=== PATIENT | male | born 1945 | race Caucasian/White ===

== ENCOUNTER 2019-12-18 11:40 | Emergency (ER) | payer OTHER ==
--- NOTE | 2019-12-18 11:44 | PDOC ---
History of Present Illness - General Chief Complaint: Injury Stated Complaint: FELL DOWN STAIRS Time Seen by Provider: 12/18/19 11:41 - History of Present Illness Initial Comments: 12/18/19 12:32 74yo male with hx of CABG on baby asa presents for eval of a fall down the stairs yesterday while running to catch the train. Pt denies head injury or loc. Pt denies neck or midline back pain. Pt presents with complaints of L rib pain, R shoulder pain, b/l knee pain (r>l), R tibial pain, R big toe pain. Pt with ecchymosis to b/l knees, effusion to R knee, hematoma w abrasion to the R anterior tibia and bruising to the R big toe. Pt denies cp/sob. States he has been walkign around since yesterday. Pt states he has been holding his asa because he is having implant work on his teeth on Friday. Pt denies ramos. No neck pain. No paresthesias. No weakness. Tetanus is not utd. Pt denies all dysuria or hematuria. No other complaints. Pt took aleve this am for pain. Pmhx: cad pshx: knee replacment L, cabg all: nkda Past History - Past Medical History Allergies/Adverse Reactions: Allergies Allergy/AdvReac Type Severity Reaction Status Date / Time No Known Allergies Allergy Verified 12/18/19 11:41 Home Medications: Ambulatory Orders Aspirin [ASA -] 81 mg PO DAILY 12/18/19 Atorvastatin Ca [Lipitor] 40 mg PO HS 12/18/19 Ferrous Sulfate 1 tab PO DAILY 12/18/19 Multivitamin [One-Daily Multi-Vitamin] 1 each PO DAILY 12/18/19 Naproxen Sodium [Aleve] 440 mg PO PRN PRN 12/18/19 [place]-3 Fatty Acids/Fish Oil [Fish Oil 1,000 mg Capsule] 1 each PO DAILY Review of Systems - Review of Systems Able to Perform ROS?: Yes Is the patient limited Mongolian proficient: No Constitutional: No: Chills, Fever HEENTM: No: Eye Pain, Blurred Vision, Double Vision, Nose Congestion, Throat Pain Respiratory: No: Cough, Shortness of Breath Cardiac (ROS): Yes: Other (l posterior lateral rib ttp over rib 9 and 10). No: Chest Pain, Irregular Heart Rate, Lightheadedness, Palpitations, Syncope, Chest Tightness ABD/GI: No: Diarrhea, Nausea, Vomiting, Abdominal cramping : No: Burning, Dysuria, Hematuria Musculoskeletal: Yes: Back Pain, Joint Pain, Joint Swelling, Other (toe pain, knee pain, abrasions to knees and anterior gunn) Integumentary: Yes: Bruising, Erythema, Other (skin avulsion with hematoma to anterior tibia on R, b/l knees with abrasion) Neurological: No: Headache, Numbness, Paresthesia, Weakness, Ataxia All Other Systems: Reviewed and Negative *Physical Exam - Vital Signs 12/18/19 12:37 Selected Entries 12/18/19 11:41 Temperature 97.2 F L Pulse Rate 74 Respiratory 20 Rate Blood Pressure 112/85 Blood Pressure 94 Mean O2 Sat by Pulse 99 Oximetry (%) Weight 81.647 kg - Physical Exam General Appearance: Yes: Nourished, Appropriately Dressed. No: Apparent Distress HEENT: positive: EOMI, PAT, Normal Voice, Pharynx Normal Neck: positive: Supple. negative: Tender, Tender midline Respiratory/Chest: positive: Chest Tender (L posterior ribs 9 and 10 ttp, no deformity or crepitus), Lungs Clear, Normal Breath Sounds. negative: Respiratory Distress, Crackles, Rales, Rhonchi, Stridor, Wheezing Cardiovascular: positive: Regular Rhythm, Regular Rate, S1, S2 Gastrointestinal/Abdominal: positive: Soft. negative: Guarding, Rebound, Tenderness Musculoskeletal: positive: Other (L posterior rib ttp). negative: Vertebral Tenderness Extremity: positive: Normal Capillary Refill, Other (L elbow mild ecchymosis, no ttp and from, R shoulder lateral ttp with FROM, b/l knee abrasions, R anterior tibia abrasion with skin tear/avulsion and underlying hematoma, R knee with effusion-no warmth but limited FROM secondary to the effusion, pulses intact, sensation intact b/l LE, incision to L knee well healed, R big toe with eccymosis to the medial aspect of the toe without ttp, brisk cap refill, neurovasc intact distal) Integumentary: positive: Swelling (R knee and hematoma to R anterior gunn), Ecchymosis (L elbow and R anterior tibia), Other (abrasion to b/l knees) Neurologic: positive: night clerk auditor II-XII NML intact, Fully Oriented, Alert, Normal Mood/ Affect, Normal Response, Motor Strength 03/21 Medical Decision Making - Medical Decision Making 12/18/19 12:41 a/p: 74yo male with mechanical fall down the stairs with MSK pain -will send for xrays -denies head injury or loc -no anticoags and pt has been holding asa -neuro intact -will update tetanus -tylenol for pain -local wound care -xrays 12/18/19 12:45 ua neg for blood 12/18/19 13:50 xrays without acute fx except for L midaxillary rib fx 10th rib incentive spirometer given and instructions given pt states pain controlled discussed pain control at home local wound care provided to anterior tib and wrapped with an josé miguel wrap pt stable for dc to home to follow up with his PMD Dr. Jackman and Dr. Randolph Discharge - Discharge Information Problems reviewed: Yes Clinical Impression/Diagnosis: Rib fracture, Knee effusion, right, Leg abrasion, Knee pain Condition: Stable Disposition: HOME - Admission No - Follow up/Referral Referrals: Ivan Jackman [Non Staff, Medical] - Dr. Agustín [Other] - Patient Discharge Instructions Patient Printed Discharge Instructions: How to Prevent Falls, DI for Contusion , DI for Rib Fracture, DI for Knee Pain, DI for Knee Effusion, DI for Avulsion Laceration (Not Requiring Sutures), DI for Hematoma (Bruise) Additional Instructions: Please apply ice to the knee 20 min on and 20 min off. Please make a follow up appointment with your PMD and your orthopedist for this week. You may need further imaging of the knee to evaluate the ligaments and cartilage. Please take tylenol as needed for pain. Please buy over the counter lidoderm 4% patches. Please use the incentive spirometer 10x every hour you are awake. Please return to the ER with any further concerns or complaints. - Post Discharge Activity
[2019-12-18 11:57] VITALS: BP 112/85; PULSE 74; TEMP 97.2; BMI 25.1
[2019-12-18] MEDS ORDERED: ACETAMINOPHEN 500 MG TABLET (FP) PO ONE (12:00)
[2019-12-18] MEDS ORDERED: DIPHTH,PERTUSS(ACELL),TET 0.5 ML DISP.SYRIN IM ONE ×2 (12:01→12:47)
[2019-12-18] MEDS ORDERED: ACETAMINOPHEN 500 MG TABLET (FP) ONE (12:17)
[2019-12-18] MEDS ORDERED: LIDOCAINE 5% TOPICAL PATCH TP ONE (13:40)
[2019-12-18] MEDS ORDERED: LIDOCAINE 5% TOPICAL PATCH ONE (13:43)
[2019-12-18] MEDS ORDERED: LIDOCAINE PATCH REMOVAL MC SCH (22:00)
== END 2019-12-18 14:11 | disposition home or self-care (01) ==
LOC: FER 11:40
PROC: 3E0234Z Introduction of Serum, Toxoid and Vaccine into Muscle, Percutaneous Approach (ICD-10-PCS; principal; 2019-12-18)
DX: S22.39XA Fracture of one rib, unspecified side, initial encounter for closed fracture (principal); W10.9XXA Fall (on) (from) unspecified stairs and steps, initial encounter; Y93.89 Activity, other specified; Y92.522 Railway station as the place of occurrence of the external cause; S80.811A Abrasion, right lower leg, initial encounter; M25.561 Pain in right knee; M25.562 Pain in left knee
CPT/HCPCS: 71101-TC-LT-FY; 72070-TC-FY; 73030-TC-RT-FY; 73562-TC-RT-FY; 73590-TC-RT-FY; 73630-TC-RT-FY; 81003; 90715; 99283-25

== ENCOUNTER 2019-12-27 15:00 | Emergency (ER) | payer OTHER ==
[2019-12-27 15:17] VITALS: BP 160/95; PULSE 80; TEMP 97.7; BMI 25.0
--- NOTE | 2019-12-27 16:09 | PDOC ---
History of Present Illness - General Chief Complaint: Injury Stated Complaint: RIGHT FOOT SWELLING Time Seen by Provider: 12/27/19 15:09 - History of Present Illness Initial Comments: 12/27/19 16:20 Chief complaint: Pain and swelling right lower leg HPI: Blunt trauma 1 week ago with injury to the knee, gunn, and ankle. X-rays performed at that time were negative for fracture. Results of these were again reviewed and dated December 18, 2019. There was also a superficial abrasion without a laceration of the anterior proximal tibial area. Since then he has had progressive swelling of the proximal anterior tibial area just below the knee. There is been no drainage. There hss been persistent pain in this area, as well as redness swelling and edema extending to the ankle and foot. No posterior calf tenderness or swelling. No shortness of breath or chest pain. Review of systems: No fever/chills, URI symptoms, sore throat, cough, chest pain , shortness of breath, abdominal pain, nausea, vomiting, diarrhea, visual or focal neurologic symptoms, unsteadiness of gait. No other constitutional symptoms are present. No drainage from the wound. Past medical history General good health, elevated cholesterol for which he takes a statin, also takes vitamins and omega-3's. Social history: No tobacco alcohol or drugs. Stable home and family Family history: Reviewed and noncontributory Physical exam: Alert oriented no acute distress cooperative Afebrile, vital signs normal Right leg: There is a linear healing ulceration just below the right knee, approximately 4 cm in length, oriented longitudinally. This is directly over the anterior tibial tuberosity. There is devitalized tissue and eschar atop the ulceration. There is a large area of fluctuance below the ulcer which has the consistency of a hematoma. There is mild erythema and warmth surrounding the hematoma which extends to the ankle. There is 2+ edema of the foot ankle and calf. However, there is no posterior calf swelling or tenderness, there are no cords, and there is negative Homans. Impression: Infected abrasion, hematoma, and early cellulitis Plan: Wound debridement, aspiration, antibiotics, and close follow-up. Past History - Past Medical History Allergies/Adverse Reactions: Allergies Allergy/AdvReac Type Severity Reaction Status Date / Time No Known Allergies Allergy Verified 12/27/19 15:07 Home Medications: Ambulatory Orders Aspirin [ASA -] 81 mg PO DAILY 12/18/19 Atorvastatin Ca [Lipitor] 40 mg PO HS 12/18/19 Ferrous Sulfate 1 tab PO DAILY 12/18/19 Multivitamin [One-Daily Multi-Vitamin] 1 each PO DAILY 12/18/19 Naproxen Sodium [Aleve] 440 mg PO PRN PRN 12/18/19 [place]-3 Fatty Acids/Fish Oil [Fish Oil 1,000 mg Capsule] 1 each PO DAILY Cephalexin Monohydrate [Keflex] 500 mg PO Q6H #30 capsule 12/27/19 COPD: No Hypercholesterolemia: Yes - Surgical History Cardiac Surgery: Yes (CABG) - Immunization History Immunization Up to Date: (UNKNOWN) - Psycho Social/Smoking Cessation Hx Smoking History: Never smoked Have you smoked in the past 12 months: No Hx Alcohol Use: Yes Drug/Substance Use Hx: No *Physical Exam - Vital Signs Last Vital Signs Temp Pulse Resp BP Pulse Ox 97.7 F 80 15 160/95 100 12/27/19 15:02 12/27/19 15:02 12/27/19 15:02 12/27/19 15:02 12/27/19 15:02 Medical Decision Making - Medical Decision Making 12/27/19 16:32 Procedure note: Wound debridement, hematoma aspiration Prepped with Betadine. Scrubbed vigorously with saline to remove devitalized tissue and debris. Rinsed again with saline. Hematoma was aspirated with 18- gauge needle and yielded approximately 20 cc of blood. This was cultured. Sharp debridement was then undertaken to remove the remaining necrotic tissue, the wound was dressed with bacitracin, 4 x 4, and paper tape to hold the dressing in place. Patient was instructed on wound care and told to return in 2 days for wound check, sooner if symptoms worsened. He was warned about fever/ chills, increased pain, swelling, redness, or heat. He was fully ambulatory no significant pain at discharge to follow-up as directed Discharge - Discharge Information Problems reviewed: Yes Clinical Impression/Diagnosis: Hematoma Cellulitis Qualifiers: Site of cellulitis: extremity Site of cellulitis of extremity: lower extremity Laterality: right Qualified Code(s): L03.115 - Cellulitis of right lower limb Condition: Stable Disposition: HOME - Admission No - Additional Discharge Information Prescriptions: Cephalexin Monohydrate [Keflex] 500 mg PO Q6H #30 capsule - Follow up/Referral Referrals: Ivan Jackman [Primary Care Provider] - 3 days - Patient Discharge Instructions Patient Printed Discharge Instructions: DI for Cellulitis -- Adult Additional Instructions: Rest and elevate right leg. Warm compresses. Change dressing daily, scrubbing the wound with sterile salt solution and dressing with antibiotic ointment. Try to gently abrade the area, rubbing away all accumulated tissue. Return to ER for wound check in 2 to 3 days, sooner if pain, swelling, redness, or drainage worsens. Take antibiotics as directed. - Post Discharge Activity
[2019-12-27] MEDS ORDERED: CEPHALEXIN MONOHYDRATE 500 MG CAPSULE (UD) PO ONE (16:13)
[2019-12-27] MEDS ORDERED: CEPHALEXIN MONOHYDRATE 500 MG CAPSULE (UD) ONE (16:15)
== END 2019-12-27 16:23 | disposition home or self-care (01) ==
LOC: FER 15:00
PROC: 0JDN0ZZ Extraction of Right Lower Leg Subcutaneous Tissue and Fascia, Open Approach (ICD-10-PCS; principal; 2019-12-27)
DX: S80.11XA Contusion of right lower leg, initial encounter (principal); X58.XXXA Exposure to other specified factors, initial encounter; Y93.89 Activity, other specified; Y92.89 Other specified places as the place of occurrence of the external cause; Z95.1 Presence of aortocoronary bypass graft; E78.00 Pure hypercholesterolemia, unspecified; L03.115 Cellulitis of right lower limb
CPT/HCPCS: 87070; 87205; 99283-25

== ENCOUNTER 2021-03-15 10:27 | Emergency (ER) | payer OTHER ==
[2021-03-15 10:41] VITALS: BP 162/86; PULSE 74; TEMP 98.1; BMI 25.1
[2021-03-15] MEDS ORDERED: CEPHALEXIN MONOHYDRATE 500 MG CAPSULE (UD) PO ONE (11:09)
[2021-03-15] MEDS ORDERED: CEPHALEXIN MONOHYDRATE 500 MG CAPSULE (UD) ONE (11:12)
== END 2021-03-15 11:41 | disposition home or self-care (01) ==
LOC: FER 10:27
DX: S30.861A Insect bite (nonvenomous) of abdominal wall, initial encounter (principal); L03.311 Cellulitis of abdominal wall
CPT/HCPCS: 99283-25

== ENCOUNTER 2021-03-16 15:27 | Emergency (ER) | payer OTHER ==
[2021-03-16 15:53] VITALS: BP 139/81; PULSE 80; TEMP 99; BMI 25.1
[2021-03-16 17:07] LABS: CALCIUM 8.6 mg/dl (8.5-10); CREATININE 0.8 mg/dl (0.55-1.3)
[2021-03-16 17:17] LABS: BASO % 0.6 % (0-2.0); EOS % 0.7 % (0-4.5); HEMATOCRIT 41.7 % (35.4-49); HEMOGLOBIN 13.7 GM/dl (11.7-16.9); LYMPH % 19.7 % (8-40); MCH 29.8 pg (25.7-33.7); MCHC 32.9 g/dl (32.0-35.9); MEAN CELL VOLUME 90.5 fl (80-96); MEAN PLT VOLUME 9.6 fl (7.5-11.1); PLATELET COUNT 142 K/MM3 (134-434); WHITE BLOOD COUNT 5.6 K/mm3 (4.0-10.8)
== END 2021-03-16 17:42 | disposition home or self-care (01) ==
LOC: FER 15:27
DX: L03.116 Cellulitis of left lower limb (principal)
CPT/HCPCS: 36415; 80048; 85025; 99284-25

== ENCOUNTER 2021-03-18 16:12 | Emergency (ER) | payer OTHER ==
[2021-03-18 16:20] VITALS: BP 139/85; PULSE 80; TEMP 98.3
== END 2021-03-18 16:47 | disposition home or self-care (01) ==
LOC: SUPCPDRO 16:12 → FER 16:12
DX: Z48.00 Encounter for change or removal of nonsurgical wound dressing (principal)
CPT/HCPCS: 99281-25

== ENCOUNTER 2022-01-30 08:27 | Day surgery (SDC) | payer OTHER ==
[2022-01-25 09:58] VITALS: BMI 25.1
[2022-01-30] MEDS: CYCLOPENTOLATE 2% OPHTH SOLN 2 ML BOTTLE ONE ×3 (09:00→09:10)
[2022-01-30] MEDS: CIPROFLOXACIN 0.3% EYE DROPS 5 ML BOTTLE ONE ×3 (09:00→09:10)
[2022-01-30] MEDS ORDERED: LIDOCAINE 1% P/F 10 MG/ML VIAL ONE (09:00)
[2022-01-30] MEDS ORDERED: NEO/POLYMYX B SULF/DEXAMETH OPHTHALMIC 5ML BOTTLE ONE (09:00)
[2022-01-30] MEDS: TROPICAMIDE 1% OPHTH SOLN 15 ML BOTTLE ONE ×3 (09:00→09:10)
[2022-01-30] MEDS ORDERED: EPINEPHrine/PF 1 MG/1 ML (1:1,000) AMPULE ONE (09:00)
[2022-01-30] MEDS ORDERED: BSS (NA/CA/MG/K) BALANCED SALT SOLUTION OPHTH SOLN 15 ML BOTTLE ONE (09:00)
[2022-01-30] MEDS ORDERED: CARBACHOL 0.01% INTRA-OCULAR 1.5 ML VIAL ONE (09:00)
[2022-01-30] MEDS: PHENYLEPHRINE 2.5% OPHTH SOLN 15 ML BOTTLE ONE ×3 (09:00→09:10)
[2022-01-30] MEDS ORDERED: TETRACAINE 0.5% OPHTH SOLN 2 ML BOTTLE ONE (09:00)
[2022-01-30 09:05] VITALS: TEMP 97.9
[2022-01-30] MEDS ORDERED: MIDAZOLAM HCL 2 MG/2 ML SINGLE DOSE VIAL ONE (10:20)
[2022-01-30 11:28] VITALS: BP 141/73; PULSE 66
== END 2022-01-30 11:40 | disposition home or self-care (01) ==
LOC: FASU 08:27
PROVIDERS: ATTEND Ophthalmology
PROC: 08RJ3JZ Replacement of Right Lens with Synthetic Substitute, Percutaneous Approach (ICD-10-PCS; principal; 2022-01-30 10:26)
DX: H26.8 Other specified cataract (principal)

== ENCOUNTER 2022-12-04 10:08 | Day surgery (SDC) | payer OTHER ==
[2022-11-29 15:19] VITALS: BMI 25.1
[2022-12-04] MEDS: PHENYLEPHRINE 2.5% OPTHALMIC DROP 2ML BOTTLE ONE ×3 (10:50→11:00)
[2022-12-04] MEDS: TROPICAMIDE 1% OPHTH SOLN 15 ML BOTTLE ONE ×3 (10:50→11:00)
[2022-12-04] MEDS: CIPROFLOXACIN 0.3% EYE DROPS 5 ML BOTTLE ONE ×3 (10:50→11:00)
[2022-12-04] MEDS: CYCLOPENTOLATE 2% OPHTH SOLN 2 ML BOTTLE ONE ×3 (10:50→11:00)
[2022-12-04] MEDS ORDERED: CARBACHOL 0.01% INTRA-OCULAR 1.5 ML VIAL ONE (11:41)
[2022-12-04] MEDS ORDERED: BSS (NA/CA/MG/K) BALANCED SALT SOLUTION OPHTH SOLN 15 ML BOTTLE ONE (11:41)
[2022-12-04] MEDS ORDERED: NEO/POLYMYX B SULF/DEXAMETH OPHTHALMIC 5ML BOTTLE ONE (11:41)
[2022-12-04] MEDS ORDERED: MIDAZOLAM HCL 2 MG/2 ML SINGLE DOSE VIAL ONE (12:05)
[2022-12-04 13:11] VITALS: BP 137/73; PULSE 63; RESP 18; TEMP 98
== END 2022-12-04 13:35 | disposition home or self-care (01) ==
LOC: FASU 10:08
PROVIDERS: ATTEND Ophthalmology
PROC: 08RK3JZ Replacement of Left Lens with Synthetic Substitute, Percutaneous Approach (ICD-10-PCS; principal; 2022-12-04 12:45)
DX: H26.8 Other specified cataract (principal)
CPT/HCPCS: 66984; V2632